=== PATIENT | female | born 1945 | race Caucasian/White ===

== ENCOUNTER 2016-07-15 17:28 | Emergency (ER) | payer MEDICARE, BC ==
[2016-07-15 18:00] VITALS: BP 122/58
--- NOTE | 2016-07-15 18:09 | UC ---
Hand/Wrist HPI - HPI Summary HPI Summary: The patient comes in today for: 1. Left little finger pain: Onset: 3 weeks ago. Palliative/Provocative: Felodipine helps. Quality: Soreness, stinging. Region: left little finger (distal phalanx). Severity: 07/12 Time: Constant. Associated symptoms: She has Raynaud's disease. Previous treatment: She had a cracking of the skin of the finger. She saw her primary care provider 2 weeks ago who gave her a prescription for Keflex for 5 days. However, he told her to only start it if she needed to (if the finger got worse). She started the Keflex two days ago. It looked two days ago , as it does now, but it is less tender at this time. However, no drainage.She has had a reduction of the swelling. * - History Of Current Complaint Chief Complaint: YRNkin Stated Complaint: LEFT PINKY Time Seen by Provider: 07/15/16 18:02 Hx Obtained From: Patient Hx Last Menstrual Period: Years ago. ?: No - Allergies/Home Medications Allergies/Adverse Reactions: Allergies Allergy/AdvReac Type Severity Reaction Status Date / Time No Known Allergies Allergy Verified 07/15/16 18:01 Home Medications: Home Medications Cephalexin CAP* [Keflex CAP*] 500 mg PO BID 07/15/16 [History Confirmed 07/15/16 ] Felodipine (NF) [Plendil (NF)] 5 mg PO BEDTIME 07/15/16 [History Confirmed 07/15] PMH/Surg Hx/FS Hx/Imm Hx Previously Healthy: No - Estrace cream by urologist for urinary symptoms and Vagifem Endocrine History Of: Denies: Diabetes, Thyroid Disease, Hyperthyroidism, Hypothyroidism, Dyslipidemia Cardiovascular History Of: Denies: Cardiac Disorders, Hypertension, Pacemaker/ICD, Myocardial Infarction , Congestive Heart Failure, Atrial Fibrillation, Deep Vein Thrombosis, Bleeding Disorders Respiratory History Of: Denies: COPD, Asthma, Bronchitis, Pneumonia, Pulmonary Embolism GI/ History Of: Denies: Gastroesophageal Reflux, Ulcer, Gastrointestinal Bleed, Gall Bladder Disease, Kidney Stones, Diverticulitis, Renal Disease, Urosepsis Neurological History Of: Denies: TIA, CVA, Dementia, Seizures, Migraine Psychological History Of: Denies: Anxiety, Depression, Bipolar Disorder, Schizophrenia, Post Traumatic Stress Disorder Cancer History Of: Denies: Lung Cancer, Colorectal Cancer, Breast Cancer, Prostate Cancer, Cervical Cancer Other History Of: Negative For: HIV, Hepatitis B, Hepatitis C, Anticoagulant Therapy - Surgical History Surgical History: Yes Surgery Procedure, Year, and Place: L eye cataract - Family History Known Family History: Positive: Cardiac Disease, Hypertension - Social History Occupation: Retired Alcohol Use: Occasionally Substance Use Type: None Smoking Status (MU): Never Smoked Tobacco Review of Systems Constitutional: Negative Skin: Rash Eyes: Negative ENT: Negative Respiratory: Negative Cardiovascular: Negative Gastrointestinal: Negative Genitourinary: Negative All Other Systems Reviewed And Are Negative: Yes Physical Exam Triage Information Reviewed: Yes Appearance: Well-Appearing, No Pain Distress, Well-Nourished Vital Signs: Initial Vital Signs Temp 99.2 F 07/15/16 17:44 Pulse 80 07/15/16 17:44 Resp 16 07/15/16 17:44 BP 122/58 07/15/16 17:44 Pulse Ox 100 07/15/16 17:44 Vital Signs Reviewed: Yes Eyes: Positive: Conjunctiva Clear. Negative: Discharge ENT: Positive: Hearing grossly normal. Negative: Pharyngeal erythema, Nasal congestion, Nasal drainage, TM bulging, TM dull, TM red, Tonsillar swelling, Tonsillar exudate Dental: Negative: Gross Decay/Caries @, Dental Fracture @ Neck: Positive: Supple, Nontender, No Lymphadenopathy. Negative: Nuchal Rigidity Respiratory: Positive: Lungs clear, No respiratory distress, No accessory muscle use, Respiratory distress. Negative: Crackles, Wheezing Cardiovascular: Positive: RRR, No Murmur Abdomen Description: Positive: Nontender, No Organomegaly, Soft. Negative: Distended, Guarding Musculoskeletal: Positive: Strength Intact, ROM Intact, No Edema Neurological: Positive: Alert, Muscle Tone Normal Psychological: Positive: Age Appropriate Behavior, Consolable Skin: Positive: Other - Left little finger: There is no edema, but there is slight break in the skin around the nail about 1/2 cm x 3 mm. There is no drainage or marked erythema. The area is red in terms of good circulation--but not red due to cellulitis--it was red like the rest of the other fingers. Hand/Wrist Course/Dx - Differential Dx/Diagnosis Differential Diagnosis/HQI/PQRI: Abrasion Provider Diagnoses: break in the skin of the left little finger. Raynaud's Discharge - Discharge Plan Condition: Stable Disposition: HOME Patient Education Materials: Nicole (ED) Additional Instructions: Please see your primary care provider in about a week to see how well you are doing. If you get worse, please be seen sooner.
== END 2016-07-15 18:44 | disposition home or self-care (01) ==
LOC: UCCORT 17:28
DX: L98.8 Other specified disorders of the skin and subcutaneous tissue (principal); I73.00 Raynaud's syndrome without gangrene
CPT/HCPCS: 99202; G0463